=== PATIENT | male | born 2005 | race Hispanic/Latino ===

== ENCOUNTER 2023-03-08 07:13 | Emergency (ER) | payer SELFPAY ==
[2023-03-08] MEDS ORDERED: Morphine 4 MG/ML VIAL ONE (08:12)
[2023-03-08 08:13] LABS: Troponin I Less than 0.010 ng/mL (< 0.028)
[2023-03-08 08:53] LABS: Bacteria/HPF None Seen HPF (None Seen); Bilirubin Negative (Negative); Blood, Urine Negative (Negative); CAUTI Indications for Culture Alt mental st,lethar; Clarity Clear (Clear); Glucose, Urine (Dipstick) Normal (Negative); Ketone, Urine Negative (Negative); Leukocyte Negative Leu/uL (Negative); Nitrite Negative (Negative); Protein, Urine (Dipstick) Negative (Neg-Trace); RBC/HPF None Seen HPF (0-3); Specific Gravity, Urine 1.012 (1.002-1.036); Squamous Epithelial 0-3 HPF (0-3); Urobilinogen Normal mg/dL (Less than 2); WBC/HPF 0-3 HPF (0-3)
[2023-03-08 09:01] LABS: Urine Culture Reflex No No
[2023-03-08] MEDS ORDERED: Orphenadrine Citrate 60 MG/2 ML VIAL ONE (10:36)
[2023-03-08] MEDS ORDERED: Acetaminophen 325 MG TAB ONE (10:36)
[2023-03-08] MEDS ORDERED: Iopamidol-370 76% 500 ML MDV (1 ML CHARGE) ONE (12:46)
== END 2023-03-08 14:48 | disposition home or self-care (01) ==
LOC: EDSEX 07:13 → ERS 07:13
DX: S06.0X1A Concussion with loss of consciousness of 30 minutes or less, initial encounter (principal); S32.010A Wedge compression fracture of first lumbar vertebra, initial encounter for closed fracture; S32.020A Wedge compression fracture of second lumbar vertebra, initial encounter for closed fracture; R91.1 Solitary pulmonary nodule; V89.2XXA Person injured in unspecified motor-vehicle accident, traffic, initial encounter; W22.11XA Striking against or struck by driver side automobile airbag, initial encounter; Y92.411 Interstate highway as the place of occurrence of the external cause
CPT/HCPCS: 36415; 70450; 71260; 72125; 74177; 81001; 93005; 94760; 96374; 96375; J2270; J2360; Q9967

== ENCOUNTER 2023-07-11 18:36 | Emergency (ER) | payer SELFPAY ==
[2023-07-11] MEDS ORDERED: Morphine 2 MG/ML VIAL ONE (19:48)
[2023-07-11 20:23] LABS: #Basophils 0.07 10x3/uL (0.0-0.2); %Basophils 0.7 % (0.0-1.0); %Eosinophils 0.8 % (0.0-10.0); %Lymphocytes 19.5 % (28.0-48.0); %Monocytes 5.1 % (0.0-4.0); %Neutrophils 73.5 % (31.0-61.0); Hematocrit 43.2 % (42.0-52.0); Mean Corpuscular HGB CONC 34.7 g/dL (32.0-36.0); Mean Corpuscular Hemoglobin 31.8 pg (25.0-35.0); Mean Corpuscular Volume 91.5 fL (78.0-98.0); Mean Platelet Volume 9.7 fL (7.4-10.4); Platelet Count 257 10x3/uL (130-400); RBC Distribution Width 11.7 % (11.5-14.5); Red Blood Cell (RBC) Count 4.72 mill/uL (4.00-5.20)
[2023-07-11] MEDS ORDERED: Boostrix 0.5 ML (Tdap) VIAL (>/=7 yrs of age) ONE (20:27)
[2023-07-11] MEDS ORDERED: CEFAZOLIN 2 GM VIAL ONE (20:27)
[2023-07-11 20:35] LABS: INR-International Normal Ratio 1.1; Prothrombin Time 14.4 sec (12.0-14.7)
[2023-07-11 20:36] LABS: PTT 30.1 sec (22.9-36.1)
[2023-07-11] MEDS ORDERED: Ibuprofen 800 MG TAB ONE (21:09)
[2023-07-11] MEDS ORDERED: Lidocaine 1% w/Epinephrine 1:100K 20 ML VIAL ONE (21:25)
[2023-07-12] MEDS ORDERED: Triple Antibiotic Oint 1 GM Packet ONE (00:18)
== END 2023-07-12 02:47 | disposition home or self-care (01) ==
LOC: ERS 18:36
DX: S51.011A Laceration without foreign body of right elbow, initial encounter (principal); F10.129 Alcohol abuse with intoxication, unspecified; W25.XXXA Contact with sharp glass, initial encounter; Y93.89 Activity, other specified; Y90.8 Blood alcohol level of 240 mg/100 ml or more; Z23 Encounter for immunization; Z75.8 Other problems related to medical facilities and other health care
CPT/HCPCS: 12002; 36415; 80307; 85025; 85610; 85730; 90471; 90715; 96365; 96375; J2272

== ENCOUNTER 2023-07-20 17:07 | Emergency (ER) | payer SELFPAY ==
[2023-07-20 18:17] LABS: #Basophils 0.06 10x3/uL (0.0-0.2); %Basophils 0.9 % (0.0-1.0); %Eosinophils 2.3 % (0.0-10.0); %Lymphocytes 28.4 % (28.0-48.0); %Monocytes 11.2 % (0.0-4.0); %Neutrophils 56.9 % (31.0-61.0); Hematocrit 38.9 % (42.0-52.0); Hemoglobin 13.7 g/dL (14.0-18.0); Mean Corpuscular HGB CONC 35.2 g/dL (32.0-36.0); Mean Corpuscular Hemoglobin 32.2 pg (25.0-35.0); Mean Corpuscular Volume 91.5 fL (78.0-98.0); Mean Platelet Volume 9.9 fL (7.4-10.4); Platelet Count 276 10x3/uL (130-400); RBC Distribution Width 11.8 % (11.5-14.5); Red Blood Cell (RBC) Count 4.25 mill/uL (4.00-5.20)
[2023-07-20] MEDS ORDERED: Lidocaine 1% MPF 2 ML VIAL ONE (18:24)
[2023-07-20] MEDS ORDERED: cefTRIAXone (ROCEPHIN) 1 GM VIAL ONE ×2 (18:25→18:31)
[2023-07-20] MEDS ORDERED: Sodium Chloride 0.9% 100 ML ONE (18:31)
[2023-07-20 18:44] LABS: ALT (SGPT) 12 U/L (8-55); AST (SGOT) 19 U/L (5-34); Albumin 4.4 g/dL (3.5-5.0); Alkaline Phosphatase 78 U/L (50-130); Anion Gap 14 mmol/L (10-20); BUN (Urea Nitrogen) 11 mg/dL (8.9-20.6); Bilirubin, Total 0.5 mg/dL (0.2-1.2); CRP,High Sensitivity (Inhouse) 0.16 mg/dL (< or = 0.5); Calc. Creatinine Clearance 0 mL/min (70-130); Carbon Dioxide 27 mmol/L (22-29); Chloride 104 mmol/L (98-107); Estimated GFR 96; Globulin 3.5 g/dL (2.4-3.5); Glucose 94 mg/dL (70-105); Potassium 3.5 mmol/L (3.5-5.1); Protein, Total 7.9 g/dL (6.0-8.3); Sodium 141 mmol/L (136-145)
== END 2023-07-20 19:18 | disposition home or self-care (01) ==
LOC: ERS 17:07
DX: L03.113 Cellulitis of right upper limb (principal); I80.8 Phlebitis and thrombophlebitis of other sites; Z48.02 Encounter for removal of sutures
CPT/HCPCS: 36415; 80053; 83605; 85025; 86141; 87040; 87149; 96365; J0696; J3490